=== PATIENT | male | born 1950 | race American Indian/Alaskan Native ===

== ENCOUNTER 2019-03-10 10:02 | Emergency (ER) | payer MEDICARE, OTHER ==
[2019-03-10] MEDS ORDERED: Acetaminophen/HYDROcodone 325-5 MG Tab PO ONE (11:29)
--- NOTE | 2019-03-10 11:48 | EDM.PDOC ---
ED HPI GENERAL MEDICAL PROBLEM - General Chief Complaint: Lower Extremity Injury/Pain Stated Complaint: SWOLLEN RT KNEE Time Seen by Provider: 03/10/19 10:59 Source of Information: Reports: Patient History Limitations: Reports: No Limitations - History of Present Illness INITIAL COMMENTS - FREE TEXT/NARRATIVE: states he has had right knee pain for about one month no injury hasn't been seen for this in the past Has tried tylenol and ibuprofen for pain without relief. No redness, warmth; just pain when he bears weight. Onset: Gradual Location: Reports: Lower Extremity, Right Quality: Reports: Sharp, Throbbing Severity: Moderate Improves with: Reports: None Worsens with: Reports: None Associated Symptoms: Reports: Other (swelling) Right Leg Pain Score (Numeric/FACES): 6 - Related Data Allergies Allergy/AdvReac Type Severity Reaction Status Date / Time codeine Allergy Other Verified 03/10/19 10:34 cyclobenzaprine Allergy Rash Verified 03/10/19 10:34 Home Meds: Home Meds *Levothyroxine 0.5 tab PO DAILY 03/10/19 [History] Finasteride [Proscar] 1 tab PO DAILY 03/10/19 [History] Past Medical History Gastrointestinal History: Reports: Cholelithiasis Endocrine/Metabolic History: Reports: Hypothyroidism - Past Surgical History Musculoskeletal Surgical History: Reports: Other (See Below) Other Musculoskeletal Surgeries/Procedures:: surgery left knee and right shoulder Social & Family History - Tobacco Use Smoking Status *Q: Former Smoker Used Tobacco, but Quit: Yes Month/Year Tobacco Last Used: 0 - Recreational Drug Use Recreational Drug Use: Yes Recreational Drug Type: Reports: Marijuana/Hashish Recreational Drug Use Frequency: Rarely Review of Systems - Review of Systems Review Of Systems: See Below Constitutional: Reports: No Symptoms Respiratory: Reports: No Symptoms Cardiovascular: Reports: No Symptoms Musculoskeletal: Reports: Joint Pain (right knee) Skin: Reports: No Symptoms Neurological: Reports: No Symptoms Psychiatric: Reports: No Symptoms ED EXAM, GENERAL - Physical Exam Exam: See Below Exam Limited By: No Limitations General Appearance: Alert, WD/WN, No Apparent Distress Head: Atraumatic, Normocephalic Neck: Normal Inspection, Supple, Non-Tender, Full Range of Motion Respiratory/Chest: No Respiratory Distress, Lungs Clear, Normal Breath Sounds Cardiovascular: Regular Rate, Rhythm Peripheral Pulses: 4+: Posterior Tibial (L), Posterior Tibial (R), Dorsalis Pedis (L), Dorsalis Pedis (R) Extremities: Joint Swelling, Leg Pain, Limited Range of Motion Neurological: Alert, Oriented, CN II-XII Intact Psychiatric: Normal Affect, Normal Mood Skin Exam: Warm, Dry, Intact, Normal Color Course - Vital Signs Last Recorded V/S: Last Vital Signs Temp 99.6 F 03/10/19 10:31 Pulse 87 03/10/19 10:31 Resp 19 03/10/19 10:31 BP 131/74 03/10/19 10:31 Pulse Ox 93 L 03/10/19 10:31 - Orders/Labs/Meds Orders: Active Orders 24 hr Category Date Time Status Knee 3V Rt [CR] Stat Exams 03/10/19 11:06 Taken Meds: Medications Discontinued Medications Generic Name Dose Route Start Last Admin Trade Name Freq PRN Reason Stop Dose Admin Hydrocodone Bitart/Acetaminophen 1 tab 03/10/19 11:29 Whiting 325-5 Mg PO 03/10/19 11:30 ONETIME ONE - Radiology Interpretation Free Text/Narrative:: reviewed xray; i do not appreciate an effusion; pending radiology interpretation ; no fx appreciated as well. - Re-Assessments/Exams Free Text/Narrative Re-Assessment/Exam: 03/10/19 11:50 Reviewed OPERATIONS SYSTEMS SPECIALIST; patient had Whiting rx in September; total of 20 tablets. Nothing since. Departure - Departure Time of Disposition: 11:53 Disposition: Home, Self-Care 01 Condition: Fair Clinical Impression: Knee pain, right - Discharge Information *PRESCRIPTION DRUG MONITORING PROGRAM REVIEWED*: Yes *COPY OF PRESCRIPTION DRUG MONITORING REPORT IN PATIENT ION: No Instructions: Knee Pain, Adult Referrals: PCP,None [Primary Care Provider] - Additional Instructions: Ice, immobilize; tylenol/motrin for pain; Use Whiting for breakthrough discomfort Follow up with your doctor for further evaluation. No not drink or drive if you take the pain medicine; This medication is an addictive medication; the less you take, the better. - Problem List & Annotations (1) Knee pain, right SNOMED Code(s): 94421392 Code(s): M25.561 - PAIN IN RIGHT KNEE Status: Acute Priority: Medium Current Visit: Yes Qualifiers: Chronicity: chronic Qualified Code(s): M25.561 - Pain in right knee; G89.29 - Other chronic pain - Problem List Review Problem List Initiated/Reviewed/Updated: Yes - My Orders Last 24 Hours: My Active Orders 03/10/19 11:06 Knee 3V Rt [CR] Stat - Assessment/Plan Last 24 Hours: My Active Orders 03/10/19 11:06 Knee 3V Rt [CR] Stat Assessment:: Ice, immobilize; tylenol/motrin for pain; Use Whiting for breakthrough discomfort Follow up with your doctor for further evaluation. No not drink or drive if you take the pain medicine; This medication is an addictive medication; the less you take, the better.
--- NOTE | 2019-03-10 12:22 | CRLCR ---
Indication: Pain Technique: Three views of the right knee Findings: Normal alignment. Mild degenerative change of the right knee. No acute fractures. Moderate dense knee effusion. Soft tissue swelling. Dictated by Ratna Dillard MD @ Mar 10 2019 12:18PM Signed by Dr. Ratna Dillard @ Mar 10 2019 12:20PM
== END 2019-03-10 12:29 | disposition home or self-care (01) ==
LOC: JP.ED 10:02
DX: M25.561 Pain in right knee (principal); E03.9 Hypothyroidism, unspecified; Z88.5 Allergy status to narcotic agent; Z88.8 Allergy status to other drugs, medicaments and biological substances; Z79.899 Other long term (current) drug therapy; Z87.891 Personal history of nicotine dependence
CPT/HCPCS: 73562; 99283; A9270

== ENCOUNTER 2020-03-16 14:21 | Emergency (ER) | payer MEDICARE, OTHER ==
--- NOTE | 2020-03-16 14:52 | EDM.PDOC ---
ED HPI GENERAL MEDICAL PROBLEM - General Chief Complaint: Genitourinary Problem Stated Complaint: INFECTION Time Seen by Provider: 03/16/20 14:47 Source of Information: Reports: Patient History Limitations: Reports: No Limitations - History of Present Illness INITIAL COMMENTS - FREE TEXT/NARRATIVE: pt has not been voiding for several hours and he is now uncomfortable. He had a bldder scan which showed 1000 or greater He was seen in the last 2-3 days and treated for a UTI. Onset: Today Duration: Hour(s):, Other ( Pt has been having some trouble with voiding huey the past 2 years. He has been on proscar which was helpful. ) Associated Symptoms: Reports: No Other Symptoms, Other (pt was quite un comfortable on arrival. ) Groin Pain Score (Numeric/FACES): 10 - Related Data Allergies Allergy/AdvReac Type Severity Reaction Status Date / Time codeine Allergy Other Verified 03/16/20 14:35 cyclobenzaprine Allergy Rash Verified 03/16/20 14:35 Home Meds: Home Meds Ciprofloxacin HCl [Cipro] 500 mg PO DAILY 03/16/20 [History] Levothyroxine Sodium [Synthroid] 75 mcg PO DAILY 03/16/20 [History] Past Medical History Gastrointestinal History: Reports: Cholelithiasis Genitourinary History: Reports: BPH, Prostate Disorder Endocrine/Metabolic History: Reports: Hypothyroidism - Past Surgical History GI Surgical History: Reports: Cholecystectomy Musculoskeletal Surgical History: Reports: Other (See Below) Other Musculoskeletal Surgeries/Procedures:: surgery left knee and right shoulder Social & Family History - Tobacco Use Smoking Status *Q: Never Smoker - Caffeine Use Caffeine Use: Reports: None - Recreational Drug Use Recreational Drug Use: No ED ROS GENERAL - Review of Systems Review Of Systems: See Below Constitutional: Reports: No Symptoms HEENT: Reports: No Symptoms Respiratory: Reports: No Symptoms Cardiovascular: Reports: No Symptoms Endocrine: Reports: No Symptoms GI/Abdominal: Reports: Abdominal Pain, Other (pt is having supra pupic pain. ) : Reports: Urinary Retention Musculoskeletal: Reports: No Symptoms Skin: Reports: No Symptoms Neurological: Reports: No Symptoms ED EXAM, RENAL/ - Physical Exam Exam: See Below Text/Narrative:: pt arrived with supra pupic pain and he was not able to void He had a bladder scan which showed greater than 1000. Exam Limited By: No Limitations General Appearance: Alert, Anxious, Moderate Distress Ears: Normal TMs Nose: Normal Inspection Throat/Mouth: Normal Inspection Head: Atraumatic Neck: Normal Inspection Respiratory/Chest: No Respiratory Distress Cardiovascular: Regular Rate, Rhythm GI/Abdominal: Other ( tender in the supra pupic area. ) (Male) Exam: Deferred Rectal (Males) Exam: Deferred Back Exam: Normal Inspection Extremities: Normal Inspection Neurological: Alert, Oriented, Normal Cognition Psychiatric: Anxious Course - Vital Signs Last Recorded V/S: Last Vital Signs Temp 35.4 C L 03/16/20 14:40 Pulse 81 03/16/20 14:40 Resp 18 03/16/20 14:40 BP 119/76 03/16/20 14:40 Pulse Ox 95 03/16/20 14:40 - Orders/Labs/Meds Orders: Active Orders 24 hr Category Date Time Status Ace Catheter Insertion [Insert Urinary Catheter] [OM. Care 03/16/20 14:30 Ordered PC] Q24H Urinary Catheter Assessment [RC] ASDIRECTED Care 03/16/20 14:27 Active Labs: Laboratory Tests 03/16/20 Range/Units 14:33 Urine Color Frontier A (YELLOW) Urine Appearance Slightly cloudy A (CLEAR) Urine pH 6.0 (5.0-8.0) Ur Specific [place] 1.025 (1.008-1.030) Urine Protein 30 H (NEGATIVE) mg/dL Urine Glucose (UA) Negative (NEGATIVE) mg/dL Urine Ketones Negative (NEGATIVE) mg/dL Urine Occult Blood Trace-intact H (NEGATIVE) Urine Nitrite Negative (NEGATIVE) Urine Bilirubin Negative (NEGATIVE) Urine Urobilinogen 0.2 (0.2-1.0) EU/dL Ur Leukocyte Esterase Negative (NEGATIVE) Urine RBC Not seen (0-5) Urine WBC 0-5 (0-5) Ur Epithelial Cells Not seen Amorphous Sediment Few Urine Bacteria Not seen Urine Mucus Not seen - Re-Assessments/Exams Free Text/Narrative Re-Assessment/Exam: 03/16/20 14:55 pt had a ace cath inserted and he was much more comfortable. His urine looks like his infection is clearing. Departure - Departure Time of Disposition: 14:56 Disposition: Home, Self-Care 01 Condition: Fair Clinical Impression: Hx: UTI (urinary tract infection), Urinary retention - Discharge Information Referrals: PCP,None [Primary Care Provider] - Care Plan Goals: Be sure to continue the finnasteride(proscar) finish antibiotic. push fluids, rtc in 2-3 days to have cath removed to see if he can void. Sepsis Event Note (ED) - Evaluation Sepsis Screening Result: No Definite Risk - Focused Exam Vital Signs: Vital Signs Temp Pulse Resp BP Pulse Ox 03/16/20 14:40 35.4 C L 81 18 119/76 95 03/16/20 14:26 35.4 C L 81 18 119/76 95 - My Orders Last 24 Hours: My Active Orders 03/16/20 14:27 Urinary Catheter Assessment [RC] ASDIRECTED 03/16/20 14:30 Ace Catheter Insertion [Insert Urinary Catheter] [OM.PC] Q24H - Assessment/Plan Last 24 Hours: My Active Orders 03/16/20 14:27 Urinary Catheter Assessment [RC] ASDIRECTED 03/16/20 14:30 Ace Catheter Insertion [Insert Urinary Catheter] [OM.PC] Q24H
== END 2020-03-16 16:56 | disposition home or self-care (01) ==
LOC: JP.ED 14:21
DX: N40.1 Benign prostatic hyperplasia with lower urinary tract symptoms (principal); R33.8 Other retention of urine; N39.0 Urinary tract infection, site not specified; E03.9 Hypothyroidism, unspecified; Z79.899 Other long term (current) drug therapy; Z88.5 Allergy status to narcotic agent; Z88.8 Allergy status to other drugs, medicaments and biological substances
CPT/HCPCS: 36415; 51702; 51798; 80053; 81001; 84443; 85025; 99283

== ENCOUNTER 2020-03-18 19:40 | Emergency (ER) | payer OTHER ==
[2020-03-18] MEDS ORDERED: Lidocaine 2% Jelly 10 ML Urojet MUCMEM ONE (19:56)
--- NOTE | 2020-03-18 20:48 | EDM.PDOC ---
ED HPI GENERAL MEDICAL PROBLEM - General Chief Complaint: Genitourinary Problem Stated Complaint: TROUBLE URINATING Time Seen by Provider: 03/18/20 20:25 Source of Information: Reports: Patient History Limitations: Reports: No Limitations - History of Present Illness INITIAL COMMENTS - FREE TEXT/NARRATIVE: 69-year-old male who had a Bosch catheter removed at the clinic this morning, has not been able to urinate since and now has acute urine retention again. Apparently has been having a hard time getting a referral at the [place]. No fevers or chills. He has been on finasteride and apparently is not helping. Onset: Gradual, Unknown/Unsure Associated Symptoms: Reports: No Other Symptoms - Related Data Allergies Allergy/AdvReac Type Severity Reaction Status Date / Time codeine Allergy Other Verified 03/18/20 20:00 cyclobenzaprine Allergy Rash Verified 03/18/20 20:00 Home Meds: Home Meds Finasteride [Proscar] 5 mg PO DAILY 03/16/20 [History] Levothyroxine Sodium [Synthroid] 75 mcg PO DAILY 03/16/20 [History] Past Medical History Gastrointestinal History: Reports: Cholelithiasis Genitourinary History: Reports: BPH, Prostate Disorder Endocrine/Metabolic History: Reports: Hypothyroidism - Past Surgical History GI Surgical History: Reports: Cholecystectomy Musculoskeletal Surgical History: Reports: Other (See Below) Other Musculoskeletal Surgeries/Procedures:: surgery left knee and right shoulder Social & Family History - Tobacco Use Smoking Status *Q: Never Smoker - Caffeine Use Caffeine Use: Reports: None ED ROS GENERAL - Review of Systems Review Of Systems: See Below Constitutional: Denies: Fever, Chills Respiratory: Denies: Shortness of Breath Cardiovascular: Denies: Chest Pain GI/Abdominal: Reports: Abdominal Pain : Reports: Urinary Retention Skin: Reports: No Symptoms ED EXAM, RENAL/ - Physical Exam Exam: See Below Exam Limited By: No Limitations General Appearance: Alert, Mild Distress (Patient is fairly uncomfortable) Respiratory/Chest: No Respiratory Distress Cardiovascular: Regular Rate, Rhythm (Male) Exam: Suprapubic Fullness Course - Vital Signs Last Recorded V/S: Last Vital Signs Temp 96.4 F L 03/18/20 20:15 Pulse 69 03/18/20 20:15 Resp 17 03/18/20 20:15 BP 118/79 03/18/20 20:15 Pulse Ox 94 L 03/18/20 20:15 - Orders/Labs/Meds Meds: Medications Discontinued Medications Generic Name Dose Route Start Last Admin Trade Name Sarika PRMaria Del Carmen Reason Stop Dose Admin Lidocaine HCl 10 ml 03/18/20 19:56 03/18/20 20:17 Xylocaine 2% Jelly MUCMEM 03/18/20 19:57 10 ml ONETIME ONE Administration - Re-Assessments/Exams Free Text/Narrative Re-Assessment/Exam: 03/18/20 20:47 Bladder scan revealed over 900 cc of urine, Boshc catheter was replaced without difficulty and his symptoms resolved. He will leave this in for the next 3 days, [facility] to schedule an appointment before the end of the week to remove the catheter and discuss further evaluation if needed. Departure - Departure Time of Disposition: 21:09 Disposition: Home, Self-Care 01 Clinical Impression: Acute urinary retention - Discharge Information Instructions: Acute Urinary Retention, Male, [place] Referrals: PCP,None [Primary Care Provider] - Forms: ED Department Discharge Care Plan Goals: [facility] for later this week to have the Bosch removed and discuss further evaluation or treatment possibilities for your ongoing urinary difficulties. Sepsis Event Note (ED) - Evaluation Sepsis Screening Result: No Definite Risk - Focused Exam Vital Signs: Vital Signs Temp Pulse Resp BP Pulse Ox 03/18/20 20:15 96.4 F L 69 17 118/79 94 L 03/18/20 20:02 96.4 F L 69 17 118/79 94 L
== END 2020-03-18 21:09 | disposition home or self-care (01) ==
LOC: JP.ED 19:40
DX: R33.9 Retention of urine, unspecified (principal); E03.9 Hypothyroidism, unspecified; Z90.49 Acquired absence of other specified parts of digestive tract; Z88.5 Allergy status to narcotic agent; Z88.8 Allergy status to other drugs, medicaments and biological substances; Z79.899 Other long term (current) drug therapy
CPT/HCPCS: 51702; 51798; 99283; 99283-25

== ENCOUNTER 2020-03-23 09:10 | Emergency (ER) | payer OTHER ==
--- NOTE | 2020-03-23 10:41 | EDM.PDOC ---
ED HPI GENERAL MEDICAL PROBLEM - General Chief Complaint: Upper Extremity Injury/Pain Stated Complaint: LEFT ARM PAIN Time Seen by Provider: 03/23/20 10:10 Source of Information: Reports: Patient History Limitations: Reports: No Limitations - History of Present Illness INITIAL COMMENTS - FREE TEXT/NARRATIVE: 69-year-old male with an inflamed, stiff, slightly reddened left elbow for the past couple of days. He has chronic pain and stiffness in the elbow but it is somewhat worse than it usually is so he wanted it checked. He is currently on doxycycline twice daily for prostatitis and has an indwelling catheter. He is also had intermittent arthritic flareups in other joints as well. No fevers or chills, no trauma to the elbow. Onset: Gradual Location: Reports: Upper Extremity, Left Worsens with: Reports: Other (Also increased pain with extension of the elbow), Movement Associated Symptoms: Denies: Chest Pain, Cough, Fever/Chills, Malaise, Nausea/Vomiting, Shortness of Breath Left Arm Pain Score (Numeric/FACES): 7 - Related Data Allergies Allergy/AdvReac Type Severity Reaction Status Date / Time codeine Allergy Other Verified 03/23/20 09:41 cyclobenzaprine Allergy Rash Verified 03/23/20 09:41 Home Meds: Home Meds Finasteride [Proscar] 5 mg PO DAILY 03/16/20 [History] Levothyroxine Sodium [Synthroid] 75 mcg PO DAILY 03/16/20 [History] Doxazosin [Doxazosin Mesylate] 2 mg PO DAILY 03/23/20 [History] Doxycycline Monohydrate 100 mg PO BID 03/23/20 [History] Past Medical History Gastrointestinal History: Reports: Cholelithiasis Genitourinary History: Reports: BPH, Prostate Disorder Endocrine/Metabolic History: Reports: Hypothyroidism - Past Surgical History GI Surgical History: Reports: Cholecystectomy Musculoskeletal Surgical History: Reports: Arthroscopic Knee, Shoulder Replacement, Other (See Below) Other Musculoskeletal Surgeries/Procedures:: surgery left knee and right shoulder Social & Family History - Tobacco Use Smoking Status *Q: Never Smoker - Caffeine Use Caffeine Use: Reports: None - Recreational Drug Use Recreational Drug Use: No Review of Systems - Review of Systems Review Of Systems: See Below Constitutional: Denies: Fever Eyes: Reports: No Symptoms Respiratory: Reports: No Symptoms Cardiovascular: Reports: No Symptoms Genitourinary: Reports: Other (Current indwelling Bosch catheter due to bladder obstruction and prostatitis) Musculoskeletal: Reports: Other (Migrating chronic arthritic joint pains) Skin: Reports: Erythema (Mild erythema around the left elbow, no bruising or other rash issues) Neurological: Reports: Paresthesia (Intermittent chronic numbness of the hands due to carpal tunnel issues). Denies: Headache ED EXAM, GENERAL - Physical Exam Exam: See Below Exam Limited By: No Limitations General Appearance: Alert, No Apparent Distress Head: Atraumatic Respiratory/Chest: No Respiratory Distress Extremities: Other (Exam is otherwise limited to the upper extremities. The left elbow has slight swelling, a mild palpable effusion and minimal redness around the elbow. It is not warm to the touch, his pain is increased with extension and feels better when flexed.) Course - Vital Signs Last Recorded V/S: Last Vital Signs Temp 97.9 F 03/23/20 09:48 Pulse 77 03/23/20 09:48 Resp 16 03/23/20 09:48 BP 107/65 03/23/20 09:48 Pulse Ox 96 03/23/20 09:48 - Orders/Labs/Meds Orders: Active Orders 24 hr Category Date Time Status Consult to Orthopedic Clinic [CONS] Routine Cons 03/23/20 10:58 Active Elbow Min 3V Lt [CR] Stat Exams 03/23/20 10:12 Taken DME for Discharge [COMM] Stat Oth 03/23/20 10:36 Ordered - Re-Assessments/Exams Free Text/Narrative Re-Assessment/Exam: 03/23/20 10:40 An x-ray of the elbow was obtained that shows mild arthritis but no other acute findings. He was placed in a sling, told to continue his doxycycline and will be placed on a tapering course of prednisone. Recheck with orthopedics next week may be beneficial as he may need fluid drained from the elbow for evaluation if not improving. Departure - Departure Time of Disposition: 11:11 Disposition: Home, Self-Care 01 Clinical Impression: Arthritis of left elbow - Discharge Information Instructions: Osteoarthritis Referrals: PCP,None [Primary Care Provider] - Forms: ED Department Discharge Care Plan Goals: Continue your current medications, use the sling for comfort and take the tapering prednisone as prescribed. Consider rechecking with orthopedics within the next week especially if not improving satisfactorily on the medication. Sepsis Event Note (ED) - Evaluation Sepsis Screening Result: No Definite Risk - Focused Exam Vital Signs: Vital Signs Temp Pulse Resp BP Pulse Ox 03/23/20 09:48 97.9 F 77 16 107/65 96 - My Orders Last 24 Hours: My Active Orders 03/23/20 10:12 Elbow Min 3V Lt [CR] Stat 03/23/20 10:36 DME for Discharge [COMM] Stat 03/23/20 10:58 Consult to Orthopedic Clinic [CONS] Routine - Assessment/Plan Last 24 Hours: My Active Orders 03/23/20 10:12 Elbow Min 3V Lt [CR] Stat 03/23/20 10:36 DME for Discharge [COMM] Stat 03/23/20 10:58 Consult to Orthopedic Clinic [CONS] Routine
--- NOTE | 2020-03-24 10:59 | CR ---
Elbow Min 3V Lt CLINICAL HISTORY: Pain, no trauma FINDINGS: No acute fracture or dislocation is noted. The fat pads are displaced. There is some periarticular spurring. There is a tiny curvilinear periarticular calcification near the radial head articulation. Impression: Fat pad displacement suggest joint effusion or hemarthrosis No fracture seen Moderate osteophytic change Normal periarticular calcification or ossification near the radial head likely degenerative calcification
== END 2020-03-23 11:11 | disposition home or self-care (01) ==
LOC: JP.ED 09:10
DX: M19.022 Primary osteoarthritis, left elbow (principal); E03.9 Hypothyroidism, unspecified; Z79.899 Other long term (current) drug therapy; Z88.5 Allergy status to narcotic agent; Z88.8 Allergy status to other drugs, medicaments and biological substances
CPT/HCPCS: 73080-26-LT; 73080-LT; 99283-25

== ENCOUNTER 2022-06-02 12:12 | Emergency (ER) | payer OTHER | END 2022-06-02 13:30 | disposition home or self-care (01) | LOC: JP.ED 12:12 | DX: B02.9 Zoster without complications (principal); Z88.5 Allergy status to narcotic agent; Z88.8 Allergy status to other drugs, medicaments and biological substances; Z79.899 Other long term (current) drug therapy; Z90.49 Acquired absence of other specified parts of digestive tract | CPT/HCPCS: 99283 ==

== ENCOUNTER 2022-10-20 14:06 | Emergency (ER) | payer OTHER | END 2022-10-20 17:17 | disposition left against medical advice (07) | LOC: JP.ED 14:06 | DX: Z53.21 Procedure and treatment not carried out due to patient leaving prior to being seen by health care provider (principal) ==

== ENCOUNTER 2024-04-29 08:30 | Emergency (ER) | payer OTHER, MEDICARE ==
[2024-04-29 09:44] LABS: APPEARANCE,URINE CLOUDY (CLEAR); BILIRUBIN,URINE NEGATIVE (NEGATIVE); COLOR,URINE YELLOW (YELLOW); GLUCOSE,URINE NEGATIVE (NEGATIVE); KETONES,URINE NEGATIVE (NEGATIVE); LEUKOCYTE ESTERASE,URINE LARGE (NEGATIVE); NITRITE,URINE POSITIVE (NEGATIVE); OCCULT BLOOD,URINE LARGE (NEGATIVE); PROTEIN,URINE 30 mg/dL (NEGATIVE); UROBILINOGEN,URINE 0.2 EU/dL (0.2-1.0)
[2024-04-29 09:49] LABS: RBC,URINE 50-75 (0-5)
[2024-04-29 09:50] LABS: AMORPHOUS SEDIMENT,URINE NOT SEEN; BACTERIA,URINE MANY; EPITHELIAL CELLS,URINE NOT SEEN; MUCUS,URINE MODERATE; WBC,URINE 40-50 (0-5)
== END 2024-04-29 11:24 | disposition home or self-care (01) ==
LOC: JP.ED 08:30
DX: N39.0 Urinary tract infection, site not specified (principal); R33.9 Retention of urine, unspecified; R31.0 Gross hematuria; I10 Essential (primary) hypertension; E03.9 Hypothyroidism, unspecified; Z90.49 Acquired absence of other specified parts of digestive tract; Z79.899 Other long term (current) drug therapy; Z88.5 Allergy status to narcotic agent; Z88.8 Allergy status to other drugs, medicaments and biological substances
CPT/HCPCS: 51700; 81001; 87086; 87088; 87186; 99285